=== PATIENT | male | born 1985 | race Caucasian/White ===

== ENCOUNTER 2019-02-09 13:58 | Emergency (ER) | payer BC, OTHER ==
[2019-02-09] MEDS: ONDANSETRON (ODT) 4 MG TAB ODT (14:29)
== END 2019-02-09 14:46 | disposition left against medical advice (07) ==
LOC: FTE 13:58
DX: R11.2 Nausea with vomiting, unspecified (principal); R19.7 Diarrhea, unspecified; R10.12 Left upper quadrant pain; E11.9 Type 2 diabetes mellitus without complications
CPT/HCPCS: 99283